=== PATIENT | male | born 1970 | race Caucasian/White ===

== ENCOUNTER 2017-01-22 16:28 | Emergency (ER) | payer OTHER ==
[~2017-01-22] VITALS: Ht 172.7 cm; Wt 65.8 kg
[2017-01-22 17:12] VITALS: BP 124/79
--- NOTE | 2017-01-22 19:22 | NUR ---
PT TAKEN TO BED 4
--- NOTE | 2017-01-22 19:26 | NUR ---
Dr. Cosme evaluating patient at bedside.
[2017-01-22] MEDS ORDERED: ONDANSETRON 4 MG ODT PO ONE (19:35)
[2017-01-22] MEDS ORDERED: DICYCLOMINE HCL LIQUID 20 MG, ALUMINUM HYD/MAG/SIMETHICONE 30 ML, LIDOCAINE VISCOUS 2% ... PO ONE ×3 (19:35)
[2017-01-22 20:01] LABS: BASOPHILS # (AUTO) 0.3 K/uL (0.00-0.22); EOSINOPHILS # (AUTO) 0.4 K/uL (0-0.4); HEMATOCRIT 45.7 % (36-52); HEMOGLOBIN 14.9 g/dL (12.0-18.0); MEAN CORPUSCULAR HEMOGLOBIN 27 pg (27-31); MEAN CORPUSCULAR HGB CONC 33 g/dL (33-37); MEAN CORPUSCULAR VOLUME 84 fL (80-94); MONOCYTES # (AUTO) 1.1 K/uL (0.8-1.0); NEUTROPHILS # (AUTO) 5.6 K/uL (1.8-7.7); PLATELET COUNT (AUTO) 284 K/uL (140-450); RED BLOOD CELL COUNT(AUTO) 5.43 MIL/uL (4.20-6.10); RED CELL DISTRIBUTION WIDTH 12.2 % (11.6-13.7); WHITE BLOOD COUNT (AUTO) 9.4 K/uL (4.8-10.8)
--- NOTE | 2017-01-22 20:05 | NUR ---
46Y/M PT PRESENTS TO ER W/C/O EPIGASTRIC PAIN/HEARTBURN SINCE LAST NOC. HX DM, HYPOTHYROIDISM. PT STATES HE VOMITED X1 LAST NOC.AAO X4, AMBULATORY WITH STEADY GAIT. RESPIRATIONS ROOM AIR, EVEN AND UNLABORED. ABDOMEN ROUD, NON DISTENDED. VSS, PAIN 12/19. ER MD MADE AWARE OF PT. STATUS.
[2017-01-22 20:10] LABS: ANION GAP 10.4 (8-16); CARBON DIOXIDE 30.1 mmol/L (21-32); CREATININE 1.5 mg/dL (0.7-1.3); POTASSIUM 3.5 mmol/L (3.5-5.1)
[2017-01-22 20:17] LABS: ALBUMIN 4.3 g/dL (3.4-5.0); TOTAL BILIRUBIN 0.7 mg/dL (0.0-1.0)
--- NOTE | 2017-01-22 20:30 | NUR ---
Patient discharged with v/s stable. Written and verbal after care instructions given and explained. Patient verbalized understanding. Ambulatory with steady gait. All questions addressed prior to discharge. Advised to follow up with PMD.
[2017-01-22 20:36] VITALS: BP 109/77
== END 2017-01-22 20:30 | disposition home or self-care (01) ==
LOC: MED 16:28
DX: T62.8X1A Toxic effect of other specified noxious substances eaten as food, accidental (unintentional), initial encounter (principal); R10.13 Epigastric pain; R11.2 Nausea with vomiting, unspecified; E11.9 Type 2 diabetes mellitus without complications; Y92.89 Other specified places as the place of occurrence of the external cause
CPT/HCPCS: 36415; 80053; 83690; 85025; 99284; S0119

== ENCOUNTER 2017-11-25 23:23 | Emergency (ER) | payer OTHER ==
[~2017-11-25] VITALS: Ht 172.7 cm; Wt 65.8 kg
[2017-11-26 00:03] VITALS: BP 128/87
--- NOTE | 2017-11-26 00:09 | NUR ---
PT AMBULATED TO LOBBY WITH VSS.
--- NOTE | 2017-11-26 01:56 | NUR ---
PATIENT LEFT WITHOUT BEING SEEN BY DR. RICHARDSON. NO FURTHER CARE PROVIDED FOR PATIENT.
== END 2017-11-26 01:56 | disposition left against medical advice (07) ==
LOC: MED 23:23
DX: R73.9 Hyperglycemia, unspecified (principal); Z53.21 Procedure and treatment not carried out due to patient leaving prior to being seen by health care provider

== ENCOUNTER 2018-03-05 17:55 | Emergency (ER) | payer SELFPAY ==
[~2018-03-05] VITALS: Ht 172.7 cm; Wt 65.8 kg
[2018-03-05 18:07] VITALS: BP 117/80
[2018-03-05] MEDS ORDERED: NACL 0.9% 1,000 ML IV ONE ×2 (18:45→20:20)
[2018-03-05 19:02] LABS: BASOPHILS # (AUTO) 0.1 K/uL (0.00-0.22); BASOPHILS % (AUTO) 0.7 % (0.0-2.0); EOSINOPHILS % (AUTO) 0.3 % (0.0-4.0); HEMATOCRIT 48.8 % (36-52); LYMPHOCYTES # (AUTO) 1.4 K/uL (2.0-11.5); LYMPHOCYTES % (AUTO) 12.2 % (20.5-51.1); MEAN CORPUSCULAR HEMOGLOBIN 27 pg (27-31); MEAN CORPUSCULAR HGB CONC 33 g/dL (33-37); MEAN CORPUSCULAR VOLUME 83.8 fL (80-94); MONOCYTES # (AUTO) 0.8 K/uL (0.8-1.0); MONOCYTES % (AUTO) 6.7 % (1.7-9.3); NEUTROPHILS # (AUTO) 9.5 K/uL (1.8-7.7); NEUTROPHILS % (AUTO) 80.1 % (42.2-75.2); PLATELET COUNT (AUTO) 296 K/uL (140-450); RED BLOOD CELL COUNT(AUTO) 5.82 MIL/uL (4.20-6.10); RED CELL DISTRIBUTION WIDTH 13.4 % (11.6-13.7); WHITE BLOOD COUNT (AUTO) 11.9 K/uL (4.8-10.8)
[2018-03-05 19:23] LABS: ALBUMIN 4.6 g/dL (3.4-5.0); ANION GAP 17.1 (8-16); CREATININE 1.7 mg/dL (0.7-1.3); POTASSIUM 5.1 mmol/L (3.5-5.1)
[2018-03-05] MEDS ORDERED: INSULIN REGULAR, HUMAN 100 UNIT/ML VIAL IVP ONE ×2 (19:50→21:50)
[2018-03-05 20:41] LABS: APPEARANCE,URINE CLEAR (CLEAR); COLOR,URINE YELLOW (YELLOW); PH,URINE 6.5 (5.0-9.0)
[2018-03-05 20:42] LABS: BILIRUBIN,URINE NEGATIVE (NEGATIVE); BLOOD, URINE NEGATIVE (NEGATIVE); LEUKOCYTE ESTERASE ,URINE NEGATIVE (NEGATIVE); NITRITE, URINE NEGATIVE (NEGATIVE); UGLUCOSE 4+ (NEGATIVE)
[2018-03-05 22:36] VITALS: BP 119/47
== END 2018-03-05 22:37 | disposition home or self-care (01) ==
LOC: MED 17:55
DX: E11.65 Type 2 diabetes mellitus with hyperglycemia (principal); E07.9 Disorder of thyroid, unspecified; F17.200 Nicotine dependence, unspecified, uncomplicated
CPT/HCPCS: 36415; 80053; 81003; 82948; 84484; 85025; 93005; 96361; 96374; 96376; 99285; J1815; J7030; 36600; 82803

== ENCOUNTER 2018-03-10 01:12 | Inpatient (IN) | payer OTHER, MEDICAID ==
[~2018-03-10] VITALS: Ht 172.7 cm; Wt 62.6 kg
[2018-03-10 01:25] VITALS: BP 123/69
[2018-03-10] MEDS ORDERED: METF-337 PO (01:29)
--- NOTE | 2018-03-10 01:31 | NUR ---
PT AMBULATED TO BED 10 WITH VSS.
[2018-03-10] MEDS ORDERED: NACL 0.9% 500 ML IV ONE ×2 (01:32)
--- NOTE | 2018-03-10 01:35 | NUR ---
48/M CAME IN ED, REPORTS THAT HE HAS BEEN UNABLE TO FILL RX FOR INSULIN LANTUS FOR THE PAST 2 WEEKS. PT WAS SEEN IN ER 5 DAYS AGO FOR HYPERGLYCEMIA, WAS GIVEN RX INSULIN LANTUS, WAS TOLD BY PHARMACIST THAT PT DID NOT HAVE COVERAGE YET. PT AOX4, GCS 15, AMBULATORY, RR EVEN AND UNLABORED. LUNG SOUNDS CLEAR BL. BS ACTIVE X4, ABD SOFT FLAT NONTENDER. PT DENIES ANY PAIN. DENIES CP, SOB, N/V, DYSURIA. HX DM, HTN, HYPOTHYROID RX METFORMIN, LEVOTHYROXINE, LISINOPRIL, JANUVIA, INSULIN LANTUS
[2018-03-10 01:56] LABS: BASOPHILS # (AUTO) 0.1 K/uL (0.00-0.22); BASOPHILS % (AUTO) 0.7 % (0.0-2.0); EOSINOPHILS % (AUTO) 0.4 % (0.0-4.0); HEMATOCRIT 46.2 % (36-52); HEMOGLOBIN 15.4 g/dL (12.0-18.0); LYMPHOCYTES # (AUTO) 1.2 K/uL (2.0-11.5); LYMPHOCYTES % (AUTO) 12.3 % (20.5-51.1); MEAN CORPUSCULAR HEMOGLOBIN 28 pg (27-31); MEAN CORPUSCULAR HGB CONC 33 g/dL (33-37); MEAN CORPUSCULAR VOLUME 83.8 fL (80-94); MONOCYTES # (AUTO) 0.7 K/uL (0.8-1.0); MONOCYTES % (AUTO) 7.3 % (1.7-9.3); NEUTROPHILS # (AUTO) 7.4 K/uL (1.8-7.7); NEUTROPHILS % (AUTO) 79.3 % (42.2-75.2); PLATELET COUNT (AUTO) 263 K/uL (140-450); RED BLOOD CELL COUNT(AUTO) 5.51 MIL/uL (4.20-6.10); RED CELL DISTRIBUTION WIDTH 13.6 % (11.6-13.7); WHITE BLOOD COUNT (AUTO) 9.4 K/uL (4.8-10.8)
[2018-03-10] MEDS ORDERED: INSULIN REGULAR, HUMAN 100 UNIT/ML VIAL IVP ONE (02:10)
[2018-03-10 02:15] LABS: ALBUMIN 4.3 g/dL (3.4-5.0); ANION GAP 22.2 (8-16); ASPARTATE AMINOTRANSFERASE 9 U/L (15-37); CARBON DIOXIDE 23.1 mmol/L (21-32); CHLORIDE 91 mmol/L (98-107); CREATININE 1.7 mg/dL (0.7-1.3); GFR ARICAN-AMERICAN 55 mL/min (>90); POTASSIUM 4.3 mmol/L (3.5-5.1); SODIUM SERUM 132 mmol/L (136-145); TOTAL BILIRUBIN 0.8 mg/dL (0.0-1.0); UREA NITROGEN, BLOOD 22 mg/dL (7-18)
[2018-03-10 02:18] LABS: GLUCOSE 724 mg/dL (74-106)
[2018-03-10 02:19] LABS: ACETONE, SERUM SMALL (NEGATIVE)
[2018-03-10] MEDS ORDERED: NACL 0.9% 1,000 ML IV SCH (02:26)
[2018-03-10] MEDS ORDERED: ACETAMINOPHEN 325 MG TAB PO PRN (02:30)
[2018-03-10] MEDS ORDERED: DEXTROSE 50% 50 ML SYR IVP PRN ×2 (02:30→03:00)
[2018-03-10] MEDS ORDERED: ONDANSETRON 4 MG/2 ML VIAL IM/IVP PRN (02:30)
[2018-03-10] MEDS ORDERED: HYDROcodone/APAP 7.5/325 MG 1 TAB PO PRN (02:30)
[2018-03-10] MEDS ORDERED: DOCUSATE SODIUM 100 MG GELCAP PO PRN (02:30)
[2018-03-10] MEDS ORDERED: MORPHINE SULFATE 2 MG/ML SYR IVP PRN (02:30)
--- NOTE | 2018-03-10 02:30 | NUR ---
PT RESTING COMFORTABLY IN BED, VS NOTED, RR EVEN AND UNLABORED. DENIES ANY PAIN. HUMULIN R IV GIVEN WITH EDUCATION, WILL RECHECK BS. ALL NEEDS MET AT THIS TIME.
--- NOTE | 2018-03-10 02:45 | NUR ---
RT AT BEDSIDE. ACCUCHECK TOO HIGH TO READ DESPITE HUMULIN R IV 20 MINS AGO, DR CORDOVA AND DR ZAMUDIO MADE AWARE.
[2018-03-10] MEDS ORDERED: INSULIN REGULAR, HUMAN 100 UNIT in NACL 0.9% 100 ML IV SCH ×2 (03:00)
[2018-03-10 03:07] LABS: CHOL/HDL RATIO 4.8 (1-4.5); FREE T4 (FREE THYROXINE) 1.14 ng/dL (0.76-1.46); MAGNESIUM 1.8 mg/dL (1.8-2.4); PHOSPHORUS 4.5 mg/dL (2.5-4.9); THYROID STIMULATING HORMONE 4.09 uIU/mL (0.34-3.74)
--- NOTE | 2018-03-10 03:15 | NUR ---
CALLED PHARMACY, MADE PHARMACIST AWARE ABOUT REGULAR INSULIN DRIP, AWAITING VERIFICATION.
[2018-03-10] MEDS: BLOOD GLUCOSE MONITORING 1 DEV DEV FS SCH ×10 (03:35→20:39)
--- NOTE | 2018-03-10 03:45 | NUR ---
BLOOD GLUCOSE [address] BOSE AWARE. ASKED IF PT CAN HAVE INSULIN DRIP STARTED AT THIS TIME OR IF PT IS WAITING FOR CENTRAL LINE PLACEMENT FIRST. STATED TO START INSULIN DRIP 5 UNITS/HR AT THIS TIME ON PT'S PERIPHERAL IV.
--- NOTE | 2018-03-10 03:50 | NUR ---
Patient will be admitted to care of DR. FLORES. Admited to ICU. Will go to room3. Belongings list completed. Report to MEG SOARES.
[2018-03-10 04:05] VITALS: BP 118/79
--- NOTE | 2018-03-10 04:05 | NUR ---
SKIN ASSESSMENT DONE, INTACT. NPO AT THIS TIME.
--- NOTE | 2018-03-10 04:05 | NUR ---
PATIENT ADMITTED FROM ED, RECEIVED REPORT FROM MEG MCQUEEN AT 0355. PATIENT'S DIAGNOSIS, HYPERGLYCEMIA, POSSIBLE DKA. PATIENT IS AAOX4, FOLLOWS COMMANDS, ST ON THE MONITOR, ON ROOM AIR, RECEIVED WITH REGULAR INSULIN DRIP RUNNING AT 5 UNITS/HR TO IV SITE ON RIGHT HAND G#22, LAST BS TAKEN IN ED AT 0345 WAS 495. IVF NS INFUSING AT 150 ML/HR TO RAC IV SITE G#18. DENIES PAIN, NO NAUSEA AT THIS TIME.
[2018-03-10] MEDS ORDERED: INFLUENZA VIRUS VACCINE QUAD 0.5 ML SYR IMVAC PRN (04:20)
[2018-03-10] MEDS ORDERED: PNEUMOCOCCAL VACCINE 23 MCG/0.5 ML VIAL IMVAC SCH (04:20)
--- NOTE | 2018-03-10 04:20 | NUR ---
BS CHECKED 411 NOTED. NOTIFIED AND CONTINUE INSULIN DRIP TO 5UNITS/HR.
--- NOTE | 2018-03-10 05:00 | NUR ---
BS CHECKED 323 NOTED, DECREASED INSULIN DRIP TO 4UNITS/HR. NO ACUTE DISTRESS NOTED. DENIES PAIN AND NAUSEA. WILL CONTINUE TO MONITOR.
--- NOTE | 2018-03-10 05:10 | NUR ---
BMP RESULTS CAME OUT, NOTIFIED TO DR. BOSE, NO NEW ORDER AND STATED OK TO GIVE PATIENT ICE CHIPS.
[2018-03-10 05:11] LABS: ANION GAP 12.9 (8-16); CARBON DIOXIDE 29.7 mmol/L (21-32); CREATININE 1.4 mg/dL (0.7-1.3); POTASSIUM 3.6 mmol/L (3.5-5.1)
[2018-03-10] MEDS: POTASSIUM CHL 20 MEQ/NACL 0.9% 1,000 ML IV SCH ×2 (05:13→11:58)
[2018-03-10 05:14] LABS: MAGNESIUM 1.8 mg/dL (1.8-2.4); PHOSPHORUS 2.9 mg/dL (2.5-4.9)
--- NOTE | 2018-03-10 05:50 | NUR ---
DR. BOSE AT BEDSIDE TO CHECK THE PATIENT. WILL FOLLOW ORDER.
[2018-03-10 06:00] VITALS: BP 100/72
--- NOTE | 2018-03-10 06:05 | NUR ---
BS CHECKED 198 NOTED, DECREASED INSULIN DRIP TO 1UNITS/HR. WILL CONTINUE TO MONITOR.
--- NOTE | 2018-03-10 07:00 | NUR ---
BS CHECKED 170 NOTED. WILL CONTINUE INSULIN DRIP 1UNITS/HR.
--- NOTE | 2018-03-10 07:16 | NUR ---
BEDSIDE REPORT GIVEN TO MORNING SHIFT RN FOR CONTINUITY OF CARE.
[2018-03-10] MEDS ORDERED: BLOOD GLUCOSE MONITORING 1 DEV DEV FS SCH (07:30)
--- NOTE | 2018-03-10 07:30 | NUR ---
RECEIVED PT FROM PM NURSE, PT AO X4, RA, NO S/S OF RESPIRATORY DISTRESS NOTED. PT HAS IV TO RIGHT HAND #22 RUNNING INSULIN AT 1 UNIT/HR AND RIGHT AC #18 WITH 20 MEQ KCL IN NS RUNNING AT 150 MLS/HR. BOTH SITES ARE INTACT AND PATENT. PT ABLE TO AMBULATE, CALL LIGHT IN REACH, POC EXPLAINED, WILL CONTINUE TO MONITOR.
[2018-03-10 08:00] VITALS: BP 105/70
[2018-03-10 08:03] LABS: BARBITURATE, URINE NEG. ng/ml (NEG <=200); BENZODIAZEPINE, URINE NEG. ng/mL (NEG <=200); CANNABINOID, URINE NEG. ng/mL (NEG <=50); COCAINE, URINE NEG. ng/mL (NEG <=300); OPIATE, URINE NEG. ng/mL (NEG <=2000); PHENCYCLIDINE SCREEN,URINE NEG. ng/mL (NEG <=25)
[2018-03-10 08:27] LABS: APPEARANCE,URINE CLEAR (CLEAR); COLOR,URINE YELLOW (YELLOW)
[2018-03-10 08:28] LABS: BILIRUBIN,URINE NEGATIVE (NEGATIVE); BLOOD, URINE NEGATIVE (NEGATIVE); LEUKOCYTE ESTERASE ,URINE NEGATIVE (NEGATIVE); NITRITE, URINE NEGATIVE (NEGATIVE); UGLUCOSE 3+ (NEGATIVE)
[2018-03-10 08:29] LABS: RBC,URINE NONE SEEN /HPF (0-5); WBC,URINE NONE SEEN /HPF (0-5)
--- NOTE | 2018-03-10 08:36 | NUR ---
PATIENT HAS BEEN SCREENED AND CATEGORIZED HIGH NUTRITION RISK. PATIENT WILL BE SEEN WITHIN 1-2 DAYS OF ADMISSION. 03/10/18 03/11/[address]
--- NOTE | 2018-03-10 09:04 | NUR ---
INSULIN DRIP D/C ed PER DR. GARZA ORDER.
[2018-03-10] MEDS: INSULIN LANTUS 100 UNITS/ML 10 ML VIAL SUBQ SCH (09:24)
[2018-03-10 10:00] VITALS: BP 118/76
[2018-03-10 11:06] LABS: ANION GAP 9.3 (8-16); CARBON DIOXIDE 31.2 mmol/L (21-32); POTASSIUM 3.5 mmol/L (3.5-5.1)
[2018-03-10] MEDS: INSULIN LISPRO SLIDING SCALE 100 UNITS/ML VIAL SUBQ PRN ×3 (11:54→20:40)
[2018-03-10] MEDS ORDERED: INSU100S53 SC (12:49)
[2018-03-10] MEDS: NACL 0.9% 1,000 ML IV SCH ×2 (13:00→21:58)
--- NOTE | 2018-03-10 13:01 | NUR ---
CHANGED IVF FROM KCL 20 MEQ IN 0.9 NS AT 150 MLS /HR TO 0.9 NS AT 100 MLS/HR .
--- NOTE | 2018-03-10 15:51 | NUR ---
transferred pt to [facility] 112[facility], pt awake, alert. denies any pain or discomfort at this moment. pt ambulated from hallway to bed. bedside report given to Camila WEAVER.
[2018-03-10 16:00] VITALS: BP 118/79
--- NOTE | 2018-03-10 16:00 | NUR ---
PT ARRIVED FROM ICU IN WHEELCHAIR, PT TRANSFERS FROM CHAIR TO BED WITHOUT PROBLEM, REPORT RECIEVED FROM ERIKA RN, PT DENIES PAIN OR DISCOMFORT, VITALS STABLE, PT ORIENTED TO ROOM AND FLOOR, POC REVIEWED, WATER PROVIDED, CALL FELIX WITHIN REACH, SIDE RAILS UP, NO IMMEDIATE NEEDS AT THIS TIME, WILL CONTINUE TO MONITROR
--- NOTE | 2018-03-10 17:31 | NUR ---
4 UNITS INSULIN GIVEN PER SLIDING SCALE FOR BS 250, PT RESTING QUIETLY IN NAD, DENIES PAIN OR DISCOMFORT, DENIES ANY NEEDS, WILL CONTINUE TO MONITOR.
--- NOTE | 2018-03-10 18:55 | NUR ---
PT SRINIVAS DIET WELL, NO C/O NV, DENIES PAIN OR DISCOMFORT, WILL CONTINUE TO MONTIOR.
--- NOTE | 2018-03-10 19:18 | NUR ---
REPORT GIVEN TO ENERGY CONTROL OFFICER NURSE, PT IN STABLE CONDITION.
--- NOTE | 2018-03-10 19:19 | NUR ---
RECEIVED BEDSIDE REPORT FROM DAY SHIFT NURSE BEBO RN, PT STABLE, NO DISTRESS NOTED, SLEEPING, IV TO R AC 18G PATENT INTACT, INFUSING NS @ 100ML/HR, AND IV TO R HAND 22G PATENT, INTACT, SL, PT ON ROOM AIR, NO SOB, INITIAL ASSESSMENT DONE, ALL SAFETY PRECAUTION MET, CALL LIGHT WITHIN REACH, WILL CONTINUE TO MONITOR.
--- NOTE | 2018-03-10 20:40 | NUR ---
BLOOD SUGAR CHECKED 240, INSULIN PER PROTOCOL ADMINISTERED, PT TOLERATED WELL, NO DISTRESS NOTED, CALL LIGHT WITHIN REACH, WILL CONTINUE TO MONITOR.
[2018-03-11] VITALS: BP 110/77
--- NOTE | 2018-03-11 00:01 | NUR ---
CHECKED ON PT, PT SLEEPING, NO DISTRESS NOTED, V/S TAKEN WNL CALL LIGHT WITHIN REACH, WILL CONTINUE TO MONITOR.
[2018-03-11] MEDS ORDERED: METOCLOPRAMIDE 10 MG TAB PO SCH (04:30)
--- NOTE | 2018-03-11 04:46 | NUR ---
DUE MEDICATION ADMINISTERED PT TOLERATED WELL, NO DISTRESS NOTED, CALL LIGHT WITHIN REACH, WILL CONTINUE TO MONITOR.
[2018-03-11] MEDS: BLOOD GLUCOSE MONITORING 1 DEV DEV FS SCH ×4 (06:16→20:32)
[2018-03-11] MEDS: INSULIN LISPRO SLIDING SCALE 100 UNITS/ML VIAL SUBQ PRN ×4 (06:34→16:40)
--- NOTE | 2018-03-11 06:58 | NUR ---
DUE MEDICATION METOCLOPRAMIDE NOT ADMINISTERED, MEDICATION TOO CLOSE TO PRIOR DOSE, PT RESTING, NO DISTRESS NOTED, CALL LIGHT WITHIN REACH, WILL CONTINUE TO MONITOR.
[2018-03-11] MEDS: METOCLOPRAMIDE 10 MG TAB PO SCH ×3 (06:59→16:38)
[2018-03-11 07:05] LABS: BASOPHILS # (AUTO) 0.1 K/uL (0.00-0.22); BASOPHILS % (AUTO) 0.7 % (0.0-2.0); EOSINOPHILS # (AUTO) 0.2 K/uL (0-0.4); HEMOGLOBIN 12.7 g/dL (12.0-18.0); LYMPHOCYTES # (AUTO) 2.3 K/uL (2.0-11.5); LYMPHOCYTES % (AUTO) 28.9 % (20.5-51.1); MEAN CORPUSCULAR HEMOGLOBIN 28 pg (27-31); MEAN CORPUSCULAR HGB CONC 33 g/dL (33-37); MEAN CORPUSCULAR VOLUME 83.3 fL (80-94); MONOCYTES # (AUTO) 0.4 K/uL (0.8-1.0); MONOCYTES % (AUTO) 5.6 % (1.7-9.3); NEUTROPHILS # (AUTO) 4.9 K/uL (1.8-7.7); NEUTROPHILS % (AUTO) 61.8 % (42.2-75.2); PLATELET COUNT (AUTO) 206 K/uL (140-450); RED BLOOD CELL COUNT(AUTO) 4.56 MIL/uL (4.20-6.10); RED CELL DISTRIBUTION WIDTH 13.5 % (11.6-13.7); WHITE BLOOD COUNT (AUTO) 7.9 K/uL (4.8-10.8)
[2018-03-11 07:15] LABS: ANION GAP 9.4 (8-16); CARBON DIOXIDE 29.5 mmol/L (21-32); CREATININE 0.8 mg/dL (0.7-1.3); POTASSIUM 3.9 mmol/L (3.5-5.1)
[2018-03-11 07:23] LABS: MAGNESIUM 1.1 mg/dL (1.8-2.4)
--- NOTE | 2018-03-11 07:24 | NUR ---
RECEIVED REPORT FROM TRADE SPECIALIST RN. PT RESTING IN BED. A/O X4. VERBALIZES NEEDS. SKIN DRY AND WARM TO TOUCH. LUNGS CLEAR ON AUSCULTATION. PERIPHERAL LINE ON RIGHT ARM RIGHT AC 18G . NS RUNNING AT 100 ML/HR. 22G ON RIGHT HAND SALINE LOCK. INTACT LINES. ABDOMEN SOFT ROUND AND NON-TENDER. HYPOACTIVE BOWEL SOUND. DENIES DIZZINESS, N/V. SKIN INTACT. DENIES PAIN. KEPT PT ON COMFORTABLE POSITION. KEPT HOB ELEVATED. BED IN LOW POSITION LOCKED. WILL CONTINUE TO MONITOR.
--- NOTE | 2018-03-11 07:24 | NUR ---
ENDORSED PT TO DAY SHIFT NURSE REBEKAH RN, PT STABLE, NO DISTRESS NOTED, CALL LIGHT WITHIN REACH
[2018-03-11 08:00] VITALS: BP 103/71
[2018-03-11] MEDS: INSULIN LANTUS 100 UNITS/ML 10 ML VIAL SUBQ SCH (09:46)
[2018-03-11] MEDS: NACL 0.9% 1,000 ML IV SCH ×2 (09:47→18:48)
[2018-03-11] MEDS ORDERED: MAG SULF 2000 MG/WATER PREMIX 100 ML IV ONE (10:20)
[2018-03-11] MEDS ORDERED: MAGNESIUM SULFATE 4GM in STERILE WATER 100 ML PREMIX IV SCH (11:00)
--- NOTE | 2018-03-11 15:22 | NUR ---
PT SLEEPING IN BED COMFORTABLY. NO CHANGE IN LOC. WILL CONTINUE TO MONITOR.
--- NOTE | 2018-03-11 15:48 | NUR ---
03/11/18 RD INITIAL ASSESSMENT COMPLETED PLEASE REFER TO NUTRITION ASSESSMENT UNDER CARE ACTIVITY FOR ESTIMATED NUTRITIONAL NEEDS. 1. CONTINUE CCHO 60 GM DIET TOLERATED 2. RD PROVIDED NUTRITION EDUCATION FOR DIABETES. PATIENT ACCEPTED. 3. RD TO FOLLOW-UP 5-7 DAYS, LOW RISK JEREMY HARPER RD
[2018-03-11 16:00] VITALS: BP 105/66
--- NOTE | 2018-03-11 16:42 | NUR ---
ADMINISTERED MEDICINE SCHEDULED. TOLERATING WELL. DENIES N/V. DENIES PAIN. NO CHANGE IN LOC. WILL CONTINUE TO MONITOR.
--- NOTE | 2018-03-11 18:50 | NUR ---
NO CHANGE IN LOC. RESTING IN BED COMFORTABLY.
--- NOTE | 2018-03-11 19:08 | NUR ---
REPORT GIVEN TO AIR COMPRESSOR OPERATOR RN FOR CONTINUITY OF CARE. PT ON STABLE CONDITION.
--- NOTE | 2018-03-11 19:09 | NUR ---
RECEIVED BEDSIDE REPORT FROM DAY SHIFT NURSE REBEKAH RN, PT STABLE, NO DISTRESS NOTED, IV TO R HAND 22G PATENT, INTACT, SL, AND R AC 18 G PATENT, INTACT, INFUSING NS @ 100ML/HR, INFUSING WELL, PT ON ROOM AIR, NO SOB, DENIES ANY PAIN AT THIS MOMENT, INITIAL ASSESSMENT DONE, ALL SAFETY PRECAUTION MET, CALL LIGHT WITHIN REACH, WILL CONTINUE TO MONITOR.
--- NOTE | 2018-03-11 20:32 | NUR ---
DUE MEDICATION ADMINISTERED, PT TOLERATED WELL, NO DISTRESS NOTED, CALL LIGHT WITHIN REACH, WILL CONTINUE TO MONITOR.
[2018-03-11] MEDS ORDERED: ATORVASTATIN 20 MG TAB PO SCH (21:00)
[2018-03-12] VITALS: BP 94/64
--- NOTE | 2018-03-12 00:02 | NUR ---
PT SLEEPING, NO DISTRESS NOTED, V/S TAKEN, WNL, CALL LGIHT WITHIN REACH, WILL CONTINUE TO MONITOR.
--- NOTE | 2018-03-12 03:52 | NUR ---
CHECKED ON PT, PT SLEEPING, NO DISTRESS NOTED, CALL LIGHT WITHIN REACH, WILL CONTINUE TO MONITOR.
[2018-03-12] MEDS: NACL 0.9% 1,000 ML IV SCH (05:10)
[2018-03-12] MEDS: METOCLOPRAMIDE 10 MG TAB PO SCH ×2 (06:38→12:06)
--- NOTE | 2018-03-12 06:38 | NUR ---
DUE MEDICATION ADMINISTERED, PT TOLERATED WELL, NO DISTRESS NOTED, CALL LIGHT WITHIN REACH, WILL CONTINUE TO MONITOR.
[2018-03-12] MEDS: BLOOD GLUCOSE MONITORING 1 DEV DEV FS SCH ×2 (06:42→12:05)
--- NOTE | 2018-03-12 07:17 | NUR ---
ENDORSED PT TO DAY SHIFT NURSE SITAL RN, PT STABLE, NO DISTRESS NOTED, CALL LIGHT WITHIN REACH.
--- NOTE | 2018-03-12 07:18 | NUR ---
RECEIVED REPORT FROM SAUL THOMAS AT BEDSIDE. PT SLEEPING ON HIS BED . HAS IV ACCESS ON RT HAND. RT AC20G, NS IVF INFUSING AT 100 ML/HR, RT FA IV ACCESS 22 G, SL. PT AMBULATORY, SKIN IS INTACT. ON RA. USES BEDSIDE URINAL. CALL LIGHT WITHIN PT REACH. UPDATED BOARD, INTRODUCED SELF. NO SIGN OF DISTRESS NOTED. WILL CONTINUE TO MONITOR PT.
[2018-03-12 07:20] LABS: BASOPHILS % (AUTO) 0.5 % (0.0-2.0); EOSINOPHILS # (AUTO) 0.2 K/uL (0-0.4); EOSINOPHILS % (AUTO) 1.8 % (0.0-4.0); HEMATOCRIT 38.4 % (36-52); HEMOGLOBIN 12.8 g/dL (12.0-18.0); LYMPHOCYTES % (AUTO) 23.8 % (20.5-51.1); MEAN CORPUSCULAR HEMOGLOBIN 28 pg (27-31); MEAN CORPUSCULAR HGB CONC 33 g/dL (33-37); MEAN CORPUSCULAR VOLUME 83.1 fL (80-94); MONOCYTES # (AUTO) 0.5 K/uL (0.8-1.0); MONOCYTES % (AUTO) 5.5 % (1.7-9.3); NEUTROPHILS # (AUTO) 5.8 K/uL (1.8-7.7); NEUTROPHILS % (AUTO) 68.4 % (42.2-75.2); PLATELET COUNT (AUTO) 214 K/uL (140-450); RED BLOOD CELL COUNT(AUTO) 4.62 MIL/uL (4.20-6.10); RED CELL DISTRIBUTION WIDTH 13.3 % (11.6-13.7); WHITE BLOOD COUNT (AUTO) 8.4 K/uL (4.8-10.8)
[2018-03-12 07:37] LABS: ANION GAP 9.4 (8-16); CARBON DIOXIDE 29.5 mmol/L (21-32); CREATININE 0.7 mg/dL (0.7-1.3); POTASSIUM 3.9 mmol/L (3.5-5.1)
[2018-03-12 07:48] LABS: MAGNESIUM 1.5 mg/dL (1.8-2.4); PHOSPHORUS 2.7 mg/dL (2.5-4.9)
[2018-03-12 08:00] VITALS: BP 112/73
[2018-03-12] MEDS ORDERED: MAGNESIUM CITRATE 300 ML BTL PO SCH (08:25)
[2018-03-12] MEDS ORDERED: MAGNESIUM OXIDE 400 MG TAB PO SCH (08:35)
[2018-03-12] MEDS: INSULIN LANTUS 100 UNITS/ML 10 ML VIAL SUBQ SCH (09:35)
--- NOTE | 2018-03-12 09:35 | NUR ---
ADMINISTERED 30 UNITS OF INSULIN ORDERED , BS 210. PT DENIES ANY PAIN. STATES TO HAVE BREAKFAST, NO BM YET. WILL CONTINUE TO MONITOR PT. PLACED CALL LIGHT WITHIN PT REACH. INFORMED HIM TO USE CALL LIGHT FRO ANY HELP.
[2018-03-12] MEDS ORDERED: ATOR40TA PO (11:57)
[2018-03-12] MEDS ORDERED: SYN.05 PO ×2 (11:57→12:18)
[2018-03-12] MEDS ORDERED: BISACODYL 10 MG SUPP RC SCH (12:00)
[2018-03-12] MEDS: INSULIN LISPRO SLIDING SCALE 100 UNITS/ML VIAL SUBQ PRN (12:08)
--- NOTE | 2018-03-12 12:16 | NUR ---
INSERTED MEDS TO PT ORDERED. ADMINISTERED DULCOLAX SUPPOSITORY ORDERED. TOLERATED WELL. 2 UNITS OF INSULIN ADMINISTERED. PT STABLE AT THIS TIME. INFORMED PT TO HOLD MUCH HE CAN BEFORE HE GOES TO RESTROOM SO THAT HE HAS GOOD BM. VERBALIZED UNDERSTANDING OF TEACHING. PT STABLE. NO SIGN OF DISTRESS NOTED. WILL COTINUE TO MONITOR PT.
[2018-03-12] MEDS ORDERED: SITA100T8 PO (12:18)
[2018-03-12] MEDS ORDERED: LISI2.5T12 PO (12:18)
--- NOTE | 2018-03-12 15:30 | NUR ---
PT DISCHARGED HOME . PT GIVEN DISCHARGE INSTRUCTION , WITH REPORTS AND PRESCRIPTION. PT REFUSED TO TAKE FLU SHOT STATING THAT HE WAS GETTING LATE, WILL GET HIS PNA VACCINE AND FLU SHOT OUT OR CAN COME BACK TO HOSPITAL LATER. PROVIDED HI DC INSTRUCTION PACKET. PT STABLE AND TOOK ALL HIS BELONGINGS WITH HIM.
== END 2018-03-12 15:30 | disposition home or self-care (01) | DRG 420 ==
LOC: MED 01:12 → MIC 02:47 → MTU 03:50
PROVIDERS: ADMIT General Practice; ATTEND General Practice
DX: E11.10 Type 2 diabetes mellitus with ketoacidosis without coma (principal); N17.0 Acute kidney failure with tubular necrosis; E87.1 Hypo-osmolality and hyponatremia; E87.8 Other disorders of electrolyte and fluid balance, not elsewhere classified; E83.42 Hypomagnesemia; E78.5 Hyperlipidemia, unspecified; E86.0 Dehydration; F15.10 Other stimulant abuse, uncomplicated; F17.210 Nicotine dependence, cigarettes, uncomplicated; I10 Essential (primary) hypertension; K59.00 Constipation, unspecified; E03.9 Hypothyroidism, unspecified; Z79.4 Long term (current) use of insulin; Z83.3 Family history of diabetes mellitus; Z80.3 Family history of malignant neoplasm of breast
CPT/HCPCS: 36415; 36600; 71045; 74018; 80048; 80053; 80305; 81001; 82009; 82140; 82150; 82550; 82803; 82948; 83036; 83605; 83615; 83690; 83735; 83880; 84100; 84436; 84439; 84443; 84484; 85025; 85610; 85730; 87081; 93005; 96361; 96374; 96376; 99285; J1815; J7030; J8597; Q0092